=== PATIENT | male | born 1980 | race African-American/Black ===

== ENCOUNTER 2020-02-07 20:09 | Emergency (ER) | payer MEDICAID ==
[~2020-02-07] VITALS: Ht 175.3 cm; Wt 77.1 kg
[2020-02-08] MEDS ORDERED: DexAMETHasone SOD PHOS 10MG/1ML VIAL INJ IV ONE (02:00)
[2020-02-08] MEDS ORDERED: diphenhdrAMINE HCL 50 MG/1 ML VL IV ONE (02:00)
[2020-02-08 02:14] LABS: Basophils # (auto) 0 10 ^3/uL (0-0.2); Basophils % (auto) 0.3 % (0.0-2.0); Eosinophils # (auto) 1.1 10 ^3/uL (0-0.8); Eosinophils % (auto) 8.6 % (0.0-7.0); Hematocrit 40.4 % (41.0-53.0); Hemoglobin 13.7 g/dL (13.5-17.5); Lymphocytes # (auto) 2.1 10 ^3/uL (0.4-5.4); Lymphocytes % (auto) 16.3 % (10.0-50.0); Mean Corpuscular Hemoglobin 32.8 pg (28.0-32.0); Mean Corpuscular Hgb Conc. 33.8 g/dL (32.0-36.0); Monocytes # (auto) 1.3 10 ^3/uL (0-1.3); Monocytes % (auto) 9.6 % (0.0-12.0); Neutrophils # (auto) 8.5 10 ^3/uL (1.6-8.6); Neutrophils % (auto) 65.2 % (37.0-80.0); Nucleated Red Blood Cells % 0.1 %; Platelet Count (auto) 395 10^3/uL (140-450); Red Blood Cells 4.17 10^6/uL (4.5-5.90); Red Cell Distribution Width 12.8 % (11.8-14.3); White Blood Cell 13.1 10^3/uL (4.4-10.8)
[2020-02-08 02:33] LABS: Albumin 2.8 g/dL (3.4-5.0); Calcium 8.8 mg/dL (8.5-10.1); Magnesium 2.2 mg/dL (1.6-2.6); Potassium 3.7 mmol/L (3.5-5.1)
[2020-02-08 02:41] LABS: BUN/Creatinine Ratio 14.1; Bilirubin, Total 0.3 mg/dL (0.2-1.0); CRP High Sensitivity 6.21 mg/dL (< 0.3); Total Protein 7.4 g/dL (6.4-8.2)
[2020-02-08 04:33] VITALS: BP 117/72
== END 2020-02-08 04:49 | disposition home or self-care (01) ==
LOC: ER 20:10
DX: L40.9 Psoriasis, unspecified (principal); J45.909 Unspecified asthma, uncomplicated
CPT/HCPCS: 36415; 80053; 83735; 85025; 86141; 87040; 96374; 96375; 99284; J1100; J1200

== ENCOUNTER 2023-01-10 22:09 | Inpatient (IN) | payer MEDICAID ==
[~2023-01-10] VITALS: Ht 175.3 cm; Wt 64.7 kg
[2023-01-10] MEDS ORDERED: ALBUTEROL SULF 2.5 MG/0.5ML(0.5%) NEB SOLN NEB ONE (22:45)
[2023-01-10] MEDS ORDERED: DexAMETHasone SOD PHOS 10MG/1ML VIAL INJ IV ONE (22:45)
[2023-01-10] MEDS ORDERED: IPRATROPIUM BROM 0.5 MG/2.5ML INH SOL NEB ONE (22:45)
[2023-01-10] MEDS ORDERED: ALBUTEROL MEDNEB 2.5 mg/3ml NEB ONE (22:50)
[2023-01-10 23:00] VITALS: PULSE 95; RESP 16; O2SAT 99
[2023-01-10 23:01] LABS: Basophils # (auto) 0 10 ^3/uL (0-0.2); Basophils % (auto) 0.4 % (0.0-2.0); Eosinophils % (auto) 11.6 % (0.0-7.0); Hemoglobin 14.4 g/dL (13.5-17.5); Lymphocytes % (auto) 23.5 % (10.0-50.0); Mean Corpuscular Hemoglobin 32.4 pg (28.0-32.0); Mean Corpuscular Hgb Conc. 33.4 g/dL (32.0-36.0); Monocytes # (auto) 0.6 10 ^3/uL (0-1.3); Monocytes % (auto) 7.2 % (0.0-12.0); Neutrophils # (auto) 4.9 10 ^3/uL (1.6-8.6); Neutrophils % (auto) 57.3 % (37.0-80.0); Red Blood Cells 4.43 10^6/uL (4.5-5.90); White Blood Cell 8.5 10^3/uL (4.4-10.8)
[2023-01-10 23:15] LABS: Prothrombin Time 10.5 sec (9.3-11.8)
[2023-01-10 23:30] LABS: Alanine Aminotransferase 14 U/L (7-40); Alkaline Phosphatase 99 U/L (46-116); Anion Gap 6 (5-15); Aspartate Aminotransferase 15 U/L (13-40); BUN/Creatinine Ratio 8.2 (10.0-20.0); Bilirubin, Total 0.5 mg/dL (0.2-1.0); Blood Urea Nitrogen 8 mg/dL (9-23); Calcium 9.1 mg/dL (8.7-10.4); Carbon Dioxide 27 mmol/L (20-30); Chloride 107 mmol/L (98-107); Glucose 115 mg/dL (74-106); Magnesium 1.7 mg/dL (1.6-2.6); Potassium 3.6 mmol/L (3.5-5.1); Sodium 140 mmol/L (136-145); Total Protein 6.8 g/dL (5.7-8.2)
[2023-01-11] VITALS (7 sets, daily range): BP systolic 109–124; BP diastolic 58–61; PULSE 75–103; RESP 18–22; TEMP 97.9; O2SAT 93–98
[2023-01-11] MEDS ORDERED: IOHEXOL 350 MG/ML 100ML IJ ONE (04:43)
[2023-01-11] MEDS ORDERED: cefTRIAXone SOD 1,000 MG VL IM ONE (06:15)
[2023-01-11] MEDS ORDERED: AZITHROMYCIN 500MG/ 250ML 250 ML IV ONE (06:15)
[2023-01-11] MEDS ORDERED: ONDANSETRON HCL 4 MG/2 ML VIAL IV PRN (06:30)
[2023-01-11] MEDS ORDERED: DOCUSATE SOD 100 MG CAP PO PRN (06:30)
[2023-01-11] MEDS ORDERED: ACETAMINOPHEN 325 MG TAB PO PRN (06:30)
[2023-01-11 07:59] LABS: Basophils # (auto) 0 10 ^3/uL (0-0.2); Basophils % (auto) 0.2 % (0.0-2.0); Eosinophils # (auto) 0 10 ^3/uL (0-0.8); Hematocrit 41.5 % (41.0-53.0); Hemoglobin 13.8 g/dL (13.5-17.5); Lymphocytes # (auto) 0.4 10 ^3/uL (0.4-5.4); Lymphocytes % (auto) 5.7 % (10.0-50.0); Mean Corpuscular Hemoglobin 31.9 pg (28.0-32.0); Mean Corpuscular Hgb Conc. 33.3 g/dL (32.0-36.0); Mean Corpuscular Volume 95.9 fL (80.0-100.0); Monocytes # (auto) 0.1 10 ^3/uL (0-1.3); Monocytes % (auto) 1.2 % (0.0-12.0); Neutrophils # (auto) 5.8 10 ^3/uL (1.6-8.6); Neutrophils % (auto) 92.9 % (37.0-80.0); Red Blood Cells 4.33 10^6/uL (4.5-5.90); Red Cell Distribution Width 12.8 % (11.8-14.3); White Blood Cell 6.2 10^3/uL (4.4-10.8)
[2023-01-11 08:22] LABS: Alanine Aminotransferase 16 U/L (7-40); Albumin 4.1 g/dL (3.2-4.8); Alkaline Phosphatase 82 U/L (46-116); Anion Gap 8 (5-15); Aspartate Aminotransferase 14 U/L (13-40); BUN/Creatinine Ratio 8.9 (10.0-20.0); Blood Urea Nitrogen 7 mg/dL (9-23); Calcium 9.3 mg/dL (8.5-10.1); Carbon Dioxide 24 mmol/L (20-30); Chloride 106 mmol/L (98-107); Glucose 178 mg/dL (74-106); Potassium 3.9 mmol/L (3.5-5.1); Sodium 138 mmol/L (136-145)
[2023-01-11 08:23] LABS: Bilirubin, Total 0.5 mg/dL (0.2-1.0); Total Protein 6.9 g/dL (5.7-8.2)
[2023-01-11 09:15] LABS: COVID19 ANTIGEN SOFIA FIA NEGATIVE (NEGATIVE); Rapid Influenza A Negative (Negative); Rapid Influenza B Negative (Negative)
[2023-01-11] MEDS: ENOXAPARIN SOD 40 MG/0.4 ML SYRINGE SC SCH (10:14)
[2023-01-11] MEDS: DexAMETHasone SOD PHOS 10MG/1ML VIAL INJ IV SCH (10:14)
[2023-01-11] MEDS: FAMOTIDINE (10MG/ML) 2ML VL IV SCH ×2 (10:21→20:51)
[2023-01-11] MEDS: SODIUM CHLOR 0.9% PF (SALINE LOCK) 10ML VIAL/SYR IV SCH ×2 (14:26→21:08)
[2023-01-11] MEDS: IPRATROPIUM BROM 0.5 MG/2.5ML INH SOL NEB PRN (18:32)
[2023-01-11] MEDS: ALBUTEROL MEDNEB 2.5 mg/3ml NEB NEB PRN (18:32)
[2023-01-11] MEDS ORDERED: ALBU108A5 INH (19:45)
[2023-01-11] MEDS ORDERED: APIX5TAB PO (19:45)
[2023-01-11] MEDS ORDERED: HYDR-3682 PO (19:46)
[2023-01-11] MEDS: HYDROcodone-ACET 5/325MG TAB PO PRN (23:23)
[2023-01-12] VITALS (8 sets, daily range): BP systolic 100–120; BP diastolic 53–70; PULSE 73–93; RESP 16–22; TEMP 97.6–98; O2SAT 97–100
[2023-01-12] MEDS: hydrOXYzine 25 MG TAB or CAP PO SCH ×4 (00:03→21:10)
[2023-01-12 05:47] LABS: Basophils # (auto) 0 10 ^3/uL (0-0.2); Basophils % (auto) 0.1 % (0.0-2.0); Eosinophils # (auto) 0 10 ^3/uL (0-0.8); Hematocrit 38.6 % (41.0-53.0); Lymphocytes # (auto) 1.5 10 ^3/uL (0.4-5.4); Lymphocytes % (auto) 11.5 % (10.0-50.0); Mean Corpuscular Hemoglobin 32.7 pg (28.0-32.0); Mean Corpuscular Hgb Conc. 33.6 g/dL (32.0-36.0); Mean Corpuscular Volume 97.2 fL (80.0-100.0); Monocytes # (auto) 0.9 10 ^3/uL (0-1.3); Monocytes % (auto) 7.2 % (0.0-12.0); Neutrophils # (auto) 10.3 10 ^3/uL (1.6-8.6); Neutrophils % (auto) 81.2 % (37.0-80.0); Red Blood Cells 3.97 10^6/uL (4.5-5.90); Red Cell Distribution Width 12.9 % (11.8-14.3); White Blood Cell 12.7 10^3/uL (4.4-10.8)
[2023-01-12 06:07] LABS: Alanine Aminotransferase 14 U/L (7-40); Albumin 3.9 g/dL (3.2-4.8); Alkaline Phosphatase 72 U/L (46-116); Anion Gap 6 (5-15); Aspartate Aminotransferase < 8 U/L (13-40); Bilirubin, Total 0.6 mg/dL (0.2-1.0); Blood Urea Nitrogen 12 mg/dL (9-23); Calcium 9.4 mg/dL (8.7-10.4); Carbon Dioxide 27 mmol/L (20-30); Chloride 105 mmol/L (98-107); Glucose 116 mg/dL (74-106); Potassium 3.7 mmol/L (3.5-5.1); Sodium 138 mmol/L (136-145)
[2023-01-12 06:08] LABS: Total Protein 6.6 g/dL (5.7-8.2)
[2023-01-12] MEDS: SODIUM CHLOR 0.9% PF (SALINE LOCK) 10ML VIAL/SYR IV SCH ×3 (06:25→21:10)
[2023-01-12] MEDS: DexAMETHasone SOD PHOS 10MG/1ML VIAL INJ IV SCH (09:52)
[2023-01-12] MEDS: FAMOTIDINE (10MG/ML) 2ML VL IV SCH ×2 (09:52→21:10)
[2023-01-12] MEDS: ENOXAPARIN SOD 40 MG/0.4 ML SYRINGE SC SCH (09:53)
[2023-01-12] MEDS: AZITHROMYCIN 500MG/ 250ML 250 ML IV SCH (09:53)
[2023-01-12] MEDS: IPRATROPIUM BROM 0.5 MG/2.5ML INH SOL NEB PRN (10:55)
[2023-01-12] MEDS: ALBUTEROL MEDNEB 2.5 mg/3ml NEB NEB PRN (10:55)
[2023-01-12] MEDS: HYDROcodone-ACET 5/325MG TAB PO PRN (14:14)
[2023-01-13] VITALS (11 sets, daily range): BP systolic 105–123; BP diastolic 58–74; PULSE 68–98; RESP 16–20; TEMP 97.7–98.3; O2SAT 94–99
[2023-01-13] MEDS: ALBUTEROL MEDNEB 2.5 mg/3ml NEB NEB PRN (01:46)
[2023-01-13] MEDS: IPRATROPIUM BROM 0.5 MG/2.5ML INH SOL NEB PRN (01:46)
[2023-01-13] MEDS: HYDROcodone-ACET 5/325MG TAB PO PRN ×3 (03:50→21:29)
[2023-01-13] MEDS: hydrOXYzine 25 MG TAB or CAP PO SCH ×3 (05:30→21:25)
[2023-01-13] MEDS: SODIUM CHLOR 0.9% PF (SALINE LOCK) 10ML VIAL/SYR IV SCH ×3 (05:31→21:29)
[2023-01-13 06:04] LABS: Basophils # (auto) 0 10 ^3/uL (0-0.2); Basophils % (auto) 0.4 % (0.0-2.0); Eosinophils # (auto) 0 10 ^3/uL (0-0.8); Eosinophils % (auto) 0.2 % (0.0-7.0); Hematocrit 39.4 % (41.0-53.0); Lymphocytes # (auto) 1.9 10 ^3/uL (0.4-5.4); Lymphocytes % (auto) 16.3 % (10.0-50.0); Monocytes # (auto) 0.8 10 ^3/uL (0-1.3); Monocytes % (auto) 6.8 % (0.0-12.0); Neutrophils # (auto) 9.1 10 ^3/uL (1.6-8.6); Neutrophils % (auto) 76.3 % (37.0-80.0); Red Blood Cells 4.06 10^6/uL (4.5-5.90); Red Cell Distribution Width 12.5 % (11.8-14.3); White Blood Cell 11.9 10^3/uL (4.4-10.8)
[2023-01-13 06:37] LABS: Alanine Aminotransferase 14 U/L (7-40); Albumin 3.8 g/dL (3.2-4.8); Alkaline Phosphatase 66 U/L (46-116); Anion Gap 8 (5-15); Aspartate Aminotransferase < 8 U/L (13-40); BUN/Creatinine Ratio 14.3 (10.0-20.0); Bilirubin, Total 0.4 mg/dL (0.2-1.0); Blood Urea Nitrogen 13 mg/dL (9-23); Carbon Dioxide 26 mmol/L (20-30); Chloride 103 mmol/L (98-107); Glucose 111 mg/dL (74-106); Potassium 3.6 mmol/L (3.5-5.1); Sodium 137 mmol/L (136-145); Total Protein 6.4 g/dL (5.7-8.2)
[2023-01-13] MEDS: ENOXAPARIN SOD 40 MG/0.4 ML SYRINGE SC SCH (09:28)
[2023-01-13] MEDS: AZITHROMYCIN 500MG/ 250ML 250 ML IV SCH (09:28)
[2023-01-13] MEDS: DexAMETHasone SOD PHOS 10MG/1ML VIAL INJ IV SCH (09:29)
[2023-01-13] MEDS: FAMOTIDINE (10MG/ML) 2ML VL IV SCH (09:29)
[2023-01-13 15:54] LABS: Urine WBC None Seen /hpf (0 - 3)
[2023-01-13 16:12] LABS: Urine Bacteria NONE SEEN /hpf (None Seen); Urine Blood Negative /uL (Negative); Urine Clarity Clear (Clear); Urine Color Colorless (Yellow); Urine Protein, UAD Negative (Negative); Urine Specific Gravity 1.008 (1.001-1.035); Urine Urobilinogen Normal (Negative)
[2023-01-13] MEDS: FAMOTIDINE 20 MG TAB PO SCH (21:25)
[2023-01-13] MEDS: APIXABAN 5 MG TAB PO SCH (21:25)
[2023-01-14] VITALS (13 sets, daily range): BP systolic 94–108; BP diastolic 46–64; PULSE 18–82; RESP 16–20; TEMP 97.8–98.3; O2SAT 93–100
[2023-01-14] MEDS: IPRATROPIUM BROM 0.5 MG/2.5ML INH SOL NEB PRN ×2 (03:21→14:02)
[2023-01-14] MEDS: ALBUTEROL MEDNEB 2.5 mg/3ml NEB NEB PRN ×2 (03:21→14:02)
[2023-01-14] MEDS: SODIUM CHLOR 0.9% PF (SALINE LOCK) 10ML VIAL/SYR IV SCH ×3 (05:26→21:50)
[2023-01-14] MEDS: hydrOXYzine 25 MG TAB or CAP PO SCH ×3 (05:26→21:46)
[2023-01-14] MEDS: HYDROcodone-ACET 5/325MG TAB PO PRN ×3 (05:27→21:56)
[2023-01-14 06:18] LABS: Calcium 9.2 mg/dL (8.7-10.4); Chloride 104 mmol/L (98-107); Potassium 3.6 mmol/L (3.5-5.1); Sodium 137 mmol/L (136-145)
[2023-01-14 06:19] LABS: Anion Gap 6 (5-15); Carbon Dioxide 27 mmol/L (20-30)
[2023-01-14 06:24] LABS: BUN/Creatinine Ratio 12.7 (10.0-20.0); Blood Urea Nitrogen 10 mg/dL (9-23); Glucose 128 mg/dL (74-106)
[2023-01-14 06:25] LABS: Magnesium 1.8 mg/dL (1.6-2.6)
[2023-01-14] MEDS: AZITHROMYCIN 250 MG TAB PO SCH (08:39)
[2023-01-14] MEDS: APIXABAN 5 MG TAB PO SCH (08:39)
[2023-01-14] MEDS: FAMOTIDINE 20 MG TAB PO SCH ×2 (08:40→21:46)
[2023-01-14] MEDS ORDERED: predniSONE 20 MG TAB PO SCH (10:00)
[2023-01-14 13:48] LABS: Triglycerides 121 mg/dL (< 150)
[2023-01-14 13:49] LABS: LDL Cholesterol 127 mg/dL (< 100)
[2023-01-14 13:50] LABS: Cholesterol 182 mg/dL (< 200); HDL Cholesterol 45 mg/dL (40-59)
[2023-01-14] MEDS ORDERED: POTASSIUM CHL 20 Meq TABLET PO ONE (14:30)
[2023-01-14] MEDS ORDERED: METOPROLOL SUCCINATE XL 50 MG TAB PO SCH (14:30)
[2023-01-14] MEDS: MAGNESIUM SULFATE 1GM/100ML 100 ML IV SCH ×2 (15:14→16:00)
[2023-01-14 15:50] LABS: Amphetamine Screen, Urine Neg (NEGATIVE)
[2023-01-14 15:51] LABS: Barbiturate Scree,Urine Neg (NEGATIVE); Benzodiazephine Screen, Urine Neg (NEGATIVE); Cannabinoid Screen, Urine Pos (NEGATIVE); Cocaine Screen, Urine Neg (NEGATIVE); Opiate Scree,Urine Neg (NEGATIVE); Phencyclidine Screen, Urine Neg (NEGATIVE)
[2023-01-14] MEDS: ATORVASTATIN 20 MG TAB PO SCH (21:46)
[2023-01-14] MEDS: HEPARIN SODIUM (PORCINE) 5000 UNITS/ML 1ML VIAL SC SCH (21:47)
[2023-01-14] MEDS: METOPROLOL TARTRATE 25 MG TAB PO SCH (21:47)
[2023-01-14] MEDS ORDERED: SACUBITRIL-VALSARTAN 24mg/26mg TAB PO SCH (22:00)
[2023-01-15] VITALS (14 sets, daily range): BP systolic 90–140; BP diastolic 44–78; PULSE 61–96; RESP 10–18; TEMP 97.6–97.8; O2SAT 95–100
[2023-01-15] MEDS: hydrOXYzine 25 MG TAB or CAP PO SCH ×3 (06:14→21:50)
[2023-01-15] MEDS: EMPAGLIFLOZIN 10 MG TAB PO SCH (06:14)
[2023-01-15] MEDS: SODIUM CHLOR 0.9% PF (SALINE LOCK) 10ML VIAL/SYR IV SCH ×3 (06:15→21:56)
[2023-01-15] MEDS: FAMOTIDINE 20 MG TAB PO SCH ×2 (10:00→21:50)
[2023-01-15] MEDS ORDERED: SPIRONOLACTONE 25 MG TAB PO SCH (10:00)
[2023-01-15] MEDS: METOPROLOL TARTRATE 25 MG TAB PO SCH ×2 (10:00→21:58)
[2023-01-15] MEDS: AZITHROMYCIN 250 MG TAB PO SCH (10:00)
[2023-01-15] MEDS ORDERED: predniSONE 20 MG TAB PO SCH (10:00)
[2023-01-15] MEDS: HEPARIN SODIUM (PORCINE) 5000 UNITS/ML 1ML VIAL SC SCH ×2 (10:00→21:56)
[2023-01-15] MEDS ORDERED: IODIXANOL 320MG/ML 100ML BTL IV ONE (10:15)
[2023-01-15] MEDS ORDERED: LIDOCAINE 2%HCL (LOCAL ANESTH.) INJ 20ML MDV ONE (10:15)
[2023-01-15] MEDS ORDERED: LIDOCAINE 1% HCL (LOCAL ANESTH.) INJ 20ML MDV ONE (10:15)
[2023-01-15] MEDS ORDERED: ANGIOMAX 250 MG VIAL IV ONE (10:19)
[2023-01-15] MEDS ORDERED: fentaNYL CITRATE 100 MCG/2 ML VL ONE (10:20)
[2023-01-15] MEDS ORDERED: SODIUM CHL 0.9% 0 ML ONE (10:20)
[2023-01-15] MEDS ORDERED: VERAPAMIL 2.5MG/ML INJ 2ML VIAL IV ONE (10:20)
[2023-01-15] MEDS ORDERED: MIDAZOLAM HCL 2MG/2ML 2ml VIAL (1mg/ml) ONE (10:20)
[2023-01-15] MEDS ORDERED: HEPARIN SODIUM (PORCINE) 5000 UNITS/ML 1ML VIAL ONE (10:20)
[2023-01-15] MEDS: HYDROcodone-ACET 5/325MG TAB PO PRN (19:35)
[2023-01-15] MEDS: ATORVASTATIN 20 MG TAB PO SCH (21:50)
[2023-01-15] MEDS: SACUBITRIL-VALSARTAN 24mg/26mg TAB PO SCH (21:50)
[2023-01-16 04:35] VITALS: PULSE 77; RESP 16; O2SAT 97
[2023-01-16] MEDS: IPRATROPIUM BROM 0.5 MG/2.5ML INH SOL NEB PRN (04:35)
[2023-01-16] MEDS: ALBUTEROL MEDNEB 2.5 mg/3ml NEB NEB PRN (04:35)
[2023-01-16 04:43] VITALS: PULSE 79; RESP 16; O2SAT 100
[2023-01-16 05:32] VITALS: BP 97/49; PULSE 72; RESP 16; TEMP 97.7; O2SAT 95
[2023-01-16] MEDS: hydrOXYzine 25 MG TAB or CAP PO SCH (06:24)
[2023-01-16] MEDS: SODIUM CHLOR 0.9% PF (SALINE LOCK) 10ML VIAL/SYR IV SCH (06:25)
[2023-01-16] MEDS: EMPAGLIFLOZIN 10 MG TAB PO SCH (06:26)
[2023-01-16 06:28] LABS: Anion Gap 8 (5-15); Carbon Dioxide 26 mmol/L (20-30); Chloride 102 mmol/L (98-107); Potassium 3.8 mmol/L (3.5-5.1); Sodium 136 mmol/L (136-145)
[2023-01-16 06:29] LABS: Calcium 8.9 mg/dL (8.7-10.4)
[2023-01-16 06:34] LABS: BUN/Creatinine Ratio 12.9 (10.0-20.0); Blood Urea Nitrogen 11 mg/dL (9-23); Glucose 102 mg/dL (74-106)
[2023-01-16 06:44] LABS: Hematocrit 46.3 % (41.0-53.0); Hemoglobin 15.7 g/dL (13.5-17.5); Mean Corpuscular Hemoglobin 32.9 pg (28.0-32.0); Mean Corpuscular Volume 96.9 fL (80.0-100.0); Red Blood Cells 4.78 10^6/uL (4.5-5.90); Red Cell Distribution Width 12.6 % (11.8-14.3); White Blood Cell 10.6 10^3/uL (4.4-10.8)
[2023-01-16 06:59] LABS: Band Neutrophils % (manual) 0; Basophils % (manual) 0 (0.0-2.0); Blast Cells 0; Metamyelocytes % 0; Promyelocytes % 0; Reactive Lymphocytes 0
[2023-01-16 08:00] VITALS: BP 99/57; PULSE 69; PULSE 72; RESP 18; TEMP 97.6; O2SAT 97
[2023-01-16 08:30] VITALS: BP 99/57; PULSE 69; RESP 18; TEMP 97.6; O2SAT 97
[2023-01-16 08:46] LABS: Eosinophils % (manual) 3 (0-7); Lymphocytes % (manual) 41 (10.0-50.0); Monocytes % (manual) 3 (0-12); Myelocytes % 3; Platelet Estimate Adequate
[2023-01-16] MEDS ORDERED: ASPirin 81 mg TAB PO SCH (10:00)
[2023-01-16] MEDS ORDERED: SPIRONOLACTONE 25 MG TAB PO SCH (10:00)
[2023-01-16] MEDS ORDERED: predniSONE 20 MG TAB PO SCH (10:00)
[2023-01-16] MEDS: METOPROLOL TARTRATE 25 MG TAB PO SCH (10:09)
[2023-01-16] MEDS: SACUBITRIL-VALSARTAN 24mg/26mg TAB PO SCH (10:10)
[2023-01-16] MEDS: AZITHROMYCIN 250 MG TAB PO SCH (10:11)
[2023-01-16] MEDS: FAMOTIDINE 20 MG TAB PO SCH (10:12)
[2023-01-16] MEDS: HEPARIN SODIUM (PORCINE) 5000 UNITS/ML 1ML VIAL SC SCH (10:12)
== END 2023-01-16 10:42 | disposition left against medical advice (07) | DRG 190 ==
LOC: EDUNIT# 22:09 → ER 22:09 → TELE 01-11 06:37 → TELE-WESTW 01-11 19:10
PROVIDERS: ADMIT Internal Medicine; ATTEND Internal Medicine
PROC: B211YZZ Fluoroscopy of Multiple Coronary Arteries using Other Contrast (ICD-10-PCS; principal; 2023-01-15)
DX: I21.4 Non-ST elevation (NSTEMI) myocardial infarction (principal); J96.00 Acute respiratory failure, unspecified whether with hypoxia or hypercapnia; I50.21 Acute systolic (congestive) heart failure; I42.8 Other cardiomyopathies; J45.901 Unspecified asthma with (acute) exacerbation; J18.9 Pneumonia, unspecified organism; J98.11 Atelectasis; F17.210 Nicotine dependence, cigarettes, uncomplicated; Z53.29 Procedure and treatment not carried out because of patient's decision for other reasons; F12.90 Cannabis use, unspecified, uncomplicated; Z20.822 Contact with and (suspected) exposure to COVID-19; L40.9 Psoriasis, unspecified; L30.9 Dermatitis, unspecified; I47.10 Supraventricular tachycardia, unspecified; I25.10 Atherosclerotic heart disease of native coronary artery without angina pectoris; E66.9 Obesity, unspecified; Z68.27 Body mass index [BMI] 27.0-27.9, adult; Z86.718 Personal history of other venous thrombosis and embolism; Z89.512 Acquired absence of left leg below knee; Z88.5 Allergy status to narcotic agent; Z89.612 Acquired absence of left leg above knee; Z91.199 Patient's noncompliance with other medical treatment and regimen due to unspecified reason
CPT/HCPCS: 36415; 71045; 71275; 80048; 80053; 80061; 80307; 81001; 83036; 83735; 83880; 84443; 84484; 85007; 85025; 85027; 85379; 85610; 85730; 86850; 86900; 86901; 87081; 87426; 87804; 93005; 93306; 93454; 93970; 94640; 96365; 96372; 96375; 99152; G0378; J0696; J1100; J2001; J2250; J3490; Q9967

== ENCOUNTER 2023-10-27 11:20 | Emergency (ER) | payer MEDICAID ==
[~2023-10-27] VITALS: Ht 175.3 cm; Wt 77.0 kg
[~2023-10-27 11:20] MED LIST: ALBU108A5 INH; APIX5TAB PO; HYDR-3682 PO
[2023-10-27 13:05] VITALS: BP 126/84; PULSE 100; RESP 16; TEMP 98.3; O2SAT 98
[2023-10-27] MEDS ORDERED: HYDR-3682 PO (13:24)
[2023-10-27] MEDS ORDERED: FLUO0.054 TOP (13:24)
[2023-10-27] MEDS ORDERED: METH4PAK PO (13:24)
[2023-10-27] MEDS: methylPREDNISolone SOD SUCC 125 MG/2 ML VL IM ONE (13:26)
== END 2023-10-27 13:29 | disposition home or self-care (01) ==
LOC: EDBD 11:20 → ER 11:20
DX: L30.9 Dermatitis, unspecified (principal); J45.909 Unspecified asthma, uncomplicated; F10.90 Alcohol use, unspecified, uncomplicated; F15.90 Other stimulant use, unspecified, uncomplicated; Z98.890 Other specified postprocedural states; Z88.6 Allergy status to analgesic agent; Z79.899 Other long term (current) drug therapy; Y90.0 Blood alcohol level of less than 20 mg/100 ml
CPT/HCPCS: 96372; 99283; J2919

== ENCOUNTER 2024-07-24 19:09 | Emergency (ER) | payer MEDICAID ==
[~2024-07-24] VITALS: Ht 175.3 cm; Wt 81.8 kg
[~2024-07-24 19:09] MED LIST changes: +FLUO0.054 TOP; +METH4PAK PO
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
[2024-07-24 19:40] VITALS: BP 124/81; PULSE 99; RESP 16; TEMP 99; O2SAT 98
[2024-07-24] MEDS: KETOROLAC TROMETH 60MG/2ML VIAL IM ONE (19:40)
[2024-07-24] MEDS: HYDROcodone-ACET 5/325MG TAB PO ONE (19:40)
--- NOTE | 2024-07-24 20:23 | DVH ---
EXAM: CT THORACIC SPINE WO CONTRAS HISTORY: trauma/pain COMPARISON: None CTDIvol 21.7 mGy, DLP 859.95 mGy*cm. TECHNIQUE: Multiple axial CT images of the spine were obtained using bone algorithm. Axial and coron al reformatting was done. Bone and soft tissue windows were reviewed. FINDINGS: The alignment of the thoracic spine is within normal limits. The thoracic vertebral bodies appear unr emarkable with no evidence of fracture. Paraspinal soft tissues appear unremarkable. No disc-osteophy te, spinal canal or neural foraminal stenosis at any of the levels in the thoracic spine. IMPRESSION: No evidence of fracture or other significant abnormality in the thoracic spine.
[2024-07-24] MEDS ORDERED: TIZA-142 PO (20:35)
[2024-07-24] MEDS ORDERED: IBUP-1456 PO (20:35)
== END 2024-07-24 20:52 | disposition home or self-care (01) ==
LOC: ER 19:17
DX: S29.012A Strain of muscle and tendon of back wall of thorax, initial encounter (principal); J45.909 Unspecified asthma, uncomplicated; F15.90 Other stimulant use, unspecified, uncomplicated; Z79.899 Other long term (current) drug therapy; Z79.01 Long term (current) use of anticoagulants; Z89.512 Acquired absence of left leg below knee; Z88.5 Allergy status to narcotic agent; Y04.8XXA Assault by other bodily force, initial encounter; Y93.89 Activity, other specified; Y92.89 Other specified places as the place of occurrence of the external cause; Y99.8 Other external cause status
CPT/HCPCS: 72128; 96372; 99285; J1885